=== PATIENT | male | born 1990 | race Caucasian/White ===

== ENCOUNTER 2018-05-05 01:24 | Emergency (ER) | payer OTHER ==
[~2018-05-05] VITALS: Ht 175.3 cm; Wt 81.6 kg
[2018-05-05 01:34] VITALS: BP_SYST 148
[2018-05-05 01:54] VITALS: BP_SYST 148
== END 2018-05-05 01:54 ==
LOC: SED 01:24
DX: Z04.1 Encounter for examination and observation following transport accident (principal)
CPT/HCPCS: 99283